=== PATIENT | female | born 1950 | race Caucasian/White ===

== ENCOUNTER 2018-03-14 05:30 | Inpatient (IN) | payer MEDICARE ==
[2018-03-08 15:49] LABS: BASOPHILS % (AUTO) 0.5 % (0-1); EOSINOPHILS # (AUTO) 0.2 X10'3 (0-0.9); EOSINOPHILS % (AUTO) 4.3 % (0-6); LYMPHOCYTES # (AUTO) 1.4 X10'3 (1.1-4.8); LYMPHOCYTES % (AUTO) 26.1 % (21-51); MEAN CORPUSCULAR HEMOGLOBIN 33.4 PG (27.0-31.0); MEAN CORPUSCULAR HGB CONC 34.7 % (33.0-36.5); MEAN CORPUSCULAR VOLUME 96.2 FL (78-98); MEAN PLATELET VOLUME 8.2 FL (7.4-10.4); MONOCYTES # (AUTO) 0.6 X10'3 (0-0.9); MONOCYTES % (AUTO) 10.6 % (2-12); NEUTROPHILS # (AUTO) 3.1 X10'3 (1.8-7.7); NEUTROPHILS % (AUTO) 58.5 % (42-75); PRE OP HEMATOCRIT 38.8 % (35.0-45.0); PRE OP HEMOGLOBIN 13.5 g/dL (12.0-16.0); PRE OP PLATELET COUNT 205 X10'3 (140-440); RED BLOOD COUNT 4.04 X10'6 (4.20-5.60); RED CELL DISTRIBUTION WIDTH 15.6 % (11.5-14.5)
[2018-03-08 15:51] LABS: PRE OP PROTIME 10.2 SECONDS (9.0-12.0)
[2018-03-08 15:56] LABS: ALBUMIN 3.1 G/DL (3.4-5.0); ALBUMIN/GLOBULIN RATIO 0.7 (1.1-1.5); ALKALINE PHOSPHATASE 73 IU/L (46-116); BLOOD UREA NITROGEN 25 MG/DL (7-18); CALCIUM 9.6 MG/DL (8.5-10.1); CHLORIDE 106 MMOL/L (99-107); CREATININE 1.25 MG/DL (0.40-0.90); PRE OP ANION GAP 5 (8-16); PRE OP AST 18 U/L (10-37); PRE OP BILIRUB, TOTAL 0.2 MG/DL (0.0-1.0); PRE OP GLUCOSE 93 MG/DL (70-104); PRE OP SODIUM 143 MMOL/L (135-145); TOTAL CARBON DIOXIDE 32.3 MMOL/L (24-32); TOTAL PROTEIN 7.4 G/DL (6.4-8.2); eGFR 43 ML/MIN
[2018-03-08 15:59] LABS: PRE OP ALT 4 U/L (30-65); PRE OP POTASSIUM 3.2 MMOL/L (3.4-5.1)
[~2018-03-14] VITALS: Ht 162.6 cm; Wt 67.1 kg
[2018-03-14] VITALS (17 sets, daily range): BP systolic 96–139; BP diastolic 55–69
[~2018-03-14 05:30] MED LIST: ALPR1TAB2 PO; AMLO5TAB PO; ATEN100T PO; CALC-1051 PO; CYAN-19 PO; Cefazolin 2GM/50ML dext iso,osmotic IVPB IV ONE; DOCUMENT DATE & TIME OF BETA-BLOCKER PO ONE; HYDR25TA4 PO; LANS15CA10 PO; MIRT45TA6 PO; clindamycin-Cleocin 900mg/D5W 50 ML IV ONE; famotidine 20mg tablet PO ONE; ringers solution, lacted 1,000 ML IV SCH
[2018-03-14] MEDS ORDERED: LIDOcaine 1% (10mg/ml) 2ml vial ONE (05:39)
[2018-03-14 06:36] LABS: ISTAT HGB 14.3 g/dl (12.0-16.0); ISTAT IONIZED CALCIUM 1.34 mmol/L (1.03-1.32); ISTAT K 3.8 mmol/L (3.5-5.1)
[2018-03-14] MEDS ORDERED: ceFAZolin 1000mg inj ONE (06:54)
[2018-03-14] MEDS ORDERED: tetracaine 1% (10mg/ml) pres. free inj. ONE (07:23)
[2018-03-14] MEDS ORDERED: morphine sulfate /PF 0.5 MG/ML 10mL ampul ONE (07:25)
[2018-03-14] MEDS ORDERED: fentaNYL/PF 50MCG/1 ML 2ML syringe ONE ×2 (07:25→08:23)
[2018-03-14] MEDS ORDERED: MIDAZolam 5mg/5ml vial ONE (07:25)
[2018-03-14] MEDS ORDERED: propofol inj 20 ML IV ONE (07:31)
[2018-03-14] MEDS ORDERED: LIDOcaine 1%/PF 5ML 10 MG/ML VIAL ONE (07:31)
[2018-03-14] MEDS ORDERED: sevoflurane 250ml liquid IH ONE (07:51)
[2018-03-14] MEDS ORDERED: TRANEXAMIC ACID 0 MG in NORMAL SALINE 100 ML-BEFORE SURGERY IV ONE (09:20)
[2018-03-14] MEDS ORDERED: ondansetron/PF 4mg/2ml inj ONE (09:46)
[2018-03-14] MEDS ORDERED: dexamethasone sod phosphate 4mg/ml inj. ONE (09:46)
[2018-03-14] MEDS ORDERED: diphenhydrAMINE 50 mg/ml inj ONE (09:46)
[2018-03-14] MEDS ORDERED: morphine 4 MG/ML inj SYRINge IV PRN ×2 (09:55)
[2018-03-14] MEDS ORDERED: meperidine/PF 25mg/ml syringe IV PRN ×3 (09:55)
[2018-03-14] MEDS ORDERED: proCHLORperazine 10 MG/2 ml inj IV PRN (09:55)
[2018-03-14] MEDS ORDERED: ondansetron/PF 4mg/2ml inj IV PRN ×3 (09:55→10:20)
[2018-03-14] MEDS ORDERED: diphenhydrAMINE 50 mg/ml inj IV PRN (09:55)
[2018-03-14] MEDS ORDERED: meperidine/PF 25mg/ml syringe ONE (09:55)
[2018-03-14] MEDS ORDERED: ringers solution, lacted 1,000 ML IV SCH (09:55)
[2018-03-14] MEDS ORDERED: naloxone 2mg/2ml inj 1.2 MG in normal saline 500ml IV soln 500 ML IV PRN (09:55)
[2018-03-14] MEDS ORDERED: acetaminophen 325mg tablet PO PRN (10:20)
[2018-03-14] MEDS ORDERED: diphenhydrAMINE 25mg capsule PO PRN ×2 (10:20)
[2018-03-14] MEDS ORDERED: magnesium hydroxide 30ml (MOM) UD suspension PO PRN (10:20)
[2018-03-14] MEDS ORDERED: bisacodyl 10mg suppository rectal RC PRN (10:20)
[2018-03-14] MEDS ORDERED: HYDROcodone/acetaminophen 10/325mg tab PO PRN ×2 (10:20)
[2018-03-14] MEDS: oxyCODONE/APAP 10/325mg tablet PO PRN (11:48)
[2018-03-14] MEDS: ALPRAZolam 0.5mg tablet PO PRN ×2 (15:10→21:00)
[2018-03-14] MEDS: clindamycin 600mg/D5W 50ml 50 ML IV SCH ×2 (15:16→20:58)
[2018-03-14] MEDS: potassium Cl 20mEq in NS 1,000 ML IV SCH (16:10)
[2018-03-14] MEDS: oxyCODONE/APAP 5-325mg tablet PO PRN ×2 (16:10→21:07)
[2018-03-14] MEDS: aspirin 81mg tab.chew PO SCH (20:59)
[2018-03-14] MEDS: sennosides 8.6mg tablet PO SCH (20:59)
[2018-03-14] MEDS: mirtazapine 15mg tablet PO SCH (21:00)
[2018-03-15] MEDS: oxyCODONE/APAP 5-325mg tablet PO PRN ×5 (01:13→21:03)
[2018-03-15] MEDS: potassium Cl 20mEq in NS 1,000 ML IV SCH (01:13)
[2018-03-15 06:02] LABS: BASOPHILS % (AUTO) 0 % (0-1); EOSINOPHILS % (AUTO) 0 % (0-6); HEMATOCRIT 33.6 % (35.0-45.0); HEMOGLOBIN 11.4 g/dl (12.0-16.0); LYMPHOCYTES # (AUTO) 0.9 X10'3 (1.1-4.8); MEAN CORPUSCULAR HEMOGLOBIN 32.8 PG (27.0-31.0); MEAN CORPUSCULAR VOLUME 96.3 FL (78-98); MEAN PLATELET VOLUME 8.2 FL (7.4-10.4); MONOCYTES # (AUTO) 0.8 X10'3 (0-0.9); NEUTROPHILS # (AUTO) 7.1 X10'3 (1.8-7.7); PLATELET COUNT 156 X10'3 (140-440); RED BLOOD COUNT 3.48 X10'6 (4.20-5.60); RED CELL DISTRIBUTION WIDTH 16.1 % (11.5-14.5); WHITE BLOOD COUNT 8.8 X10'3 (4.5-11.0)
[2018-03-15 06:11] LABS: ALANINE AMINOTRANSFERASE 20 U/L (12-78); ALBUMIN 2.4 G/DL (3.4-5.0); ALBUMIN/GLOBULIN RATIO 0.7 (1.1-1.5); ALKALINE PHOSPHATASE 57 IU/L (46-116); ANION GAP 7 (8-16); ASPARTATE AMINO TRANSFERASE 16 U/L (10-37); BILIRUBIN,TOTAL 0.3 MG/DL (0.1-1.0); BLOOD UREA NITROGEN 18 MG/DL (7-18); CALCIUM 7.9 MG/DL (8.5-10.1); CHLORIDE 108 MMOL/L (99-107); GLUCOSE 111 MG/DL (70-104); POTASSIUM 3.9 MMOL/L (3.5-5.1); SODIUM 142 MMOL/L (135-145); TOTAL CARBON DIOXIDE 27.3 MMOL/L (24-32); eGFR 45 ML/MIN
[2018-03-15 06:46] VITALS: BP 122/62
[2018-03-15] MEDS: pantoprazole 40mg Tablet.DR PO SCH (07:05)
[2018-03-15] MEDS: HYDROchlorothiazide 25mg tablet PO SCH (07:05)
[2018-03-15] MEDS: amLODIPine 5mg tablet PO SCH (07:12)
[2018-03-15] MEDS: aspirin 81mg tab.chew PO SCH ×2 (07:17→17:45)
[2018-03-15] MEDS: atenolol 50mg tablet PO SCH (07:18)
[2018-03-15] MEDS: ALPRAZolam 0.5mg tablet PO PRN ×3 (07:19→21:03)
[2018-03-15 07:30] VITALS: BP 111/75
[2018-03-15 10:00] VITALS: BP 108/54
[2018-03-15] MEDS ORDERED: Protein Shake (high protein) 240ml (8oz) cup PO SCH (12:30)
[2018-03-15 18:00] VITALS: BP 129/63
[2018-03-15] MEDS: sennosides 8.6mg tablet PO SCH (21:03)
[2018-03-15] MEDS: mirtazapine 15mg tablet PO SCH (21:03)
[2018-03-15 22:00] VITALS: BP 115/59
[2018-03-16] MEDS: oxyCODONE/APAP 10/325mg tablet PO PRN ×2 (02:18→06:20)
[2018-03-16 05:00] VITALS: BP 147/74
[2018-03-16 06:02] LABS: BASOPHILS % (AUTO) 0.3 % (0-1); EOSINOPHILS % (AUTO) 0.5 % (0-6); HEMATOCRIT 34.9 % (35.0-45.0); LYMPHOCYTES # (AUTO) 1.6 X10'3 (1.1-4.8); LYMPHOCYTES % (AUTO) 18.4 % (21-51); MEAN CORPUSCULAR HEMOGLOBIN 33.1 PG (27.0-31.0); MEAN CORPUSCULAR HGB CONC 34.4 % (33.0-36.5); MEAN CORPUSCULAR VOLUME 95.9 FL (78-98); MONOCYTES # (AUTO) 0.8 X10'3 (0-0.9); NEUTROPHILS % (AUTO) 70.8 % (42-75); PLATELET COUNT 160 X10'3 (140-440); RED BLOOD COUNT 3.64 X10'6 (4.20-5.60); RED CELL DISTRIBUTION WIDTH 16.2 % (11.5-14.5); WHITE BLOOD COUNT 8.5 X10'3 (4.5-11.0)
[2018-03-16 06:18] LABS: ALANINE AMINOTRANSFERASE 23 U/L (12-78); ALBUMIN 2.5 G/DL (3.4-5.0); ALBUMIN/GLOBULIN RATIO 0.6 (1.1-1.5); ALKALINE PHOSPHATASE 58 IU/L (46-116); ANION GAP 8 (8-16); ASPARTATE AMINO TRANSFERASE 24 U/L (10-37); BILIRUBIN,TOTAL 0.4 MG/DL (0.1-1.0); BLOOD UREA NITROGEN 14 MG/DL (7-18); BUN/CREATININE RATIO 12.2 (6.6-38.0); CALCIUM 8.7 MG/DL (8.5-10.1); CHLORIDE 105 MMOL/L (99-107); CREATININE 1.15 MG/DL (0.40-0.90); GLUCOSE 86 MG/DL (70-104); POTASSIUM 3.3 MMOL/L (3.5-5.1); SODIUM 141 MMOL/L (135-145); TOTAL CARBON DIOXIDE 28.1 MMOL/L (24-32); TOTAL PROTEIN 6.5 G/DL (6.4-8.2); eGFR 47 ML/MIN
[2018-03-16] MEDS ORDERED: potassium Cl 20 mEq SR tablet PO PRN (07:00)
[2018-03-16] MEDS ORDERED: potassium Cl 40MEQ/NS 500ml 500 ML IV PRN ×2 (07:00)
[2018-03-16] MEDS: pantoprazole 40mg Tablet.DR PO SCH (07:30)
[2018-03-16 08:00] VITALS: BP 97/66
[2018-03-16] MEDS: HYDROchlorothiazide 25mg tablet PO SCH (08:00)
[2018-03-16] MEDS: amLODIPine 5mg tablet PO SCH (08:00)
[2018-03-16] MEDS: atenolol 50mg tablet PO SCH (08:00)
[2018-03-16] MEDS: aspirin 81mg tab.chew PO SCH ×2 (08:02→17:38)
[2018-03-16] MEDS: potassium Cl 20 mEq SR tablet PO PRN ×3 (08:02→17:37)
[2018-03-16] MEDS: ALPRAZolam 0.5mg tablet PO PRN ×2 (08:03→15:30)
[2018-03-16 09:21] LABS: MAGNESIUM 1.2 MG/DL (1.5-2.4)
[2018-03-16 10:00] VITALS: BP 102/50
[2018-03-16] MEDS ORDERED: magnesium Cl slow-release 64mg tablet PO PRN (12:45)
[2018-03-16] MEDS: oxyCODONE/APAP 5-325mg tablet PO PRN ×2 (13:02→17:38)
== END 2018-03-16 17:30 | disposition home health service (06) | DRG 468 ==
LOC: PAS IN 05:30 → EDSTATUS 07:30 → ORTHO 4S 10:50
PROVIDERS: ADMIT Orthopaedic Surgery; ATTEND Orthopaedic Surgery
PROC: 0SUA09Z Supplement Right Hip Joint, Acetabular Surface with Liner, Open Approach (ICD-10-PCS; 2018-03-14)
PROC: 0SRR0JZ Replacement of Right Hip Joint, Femoral Surface with Synthetic Substitute, Open Approach (ICD-10-PCS; 2018-03-14)
PROC: 0SPR0JZ Removal of Synthetic Substitute from Right Hip Joint, Femoral Surface, Open Approach (ICD-10-PCS; 2018-03-14)
PROC: 0SP909Z Removal of Liner from Right Hip Joint, Open Approach (ICD-10-PCS; principal; 2018-03-14 07:51)
DX: T84.020A Dislocation of internal right hip prosthesis, initial encounter (principal); I10 Essential (primary) hypertension; Y79.2 Prosthetic and other implants, materials and accessory orthopedic devices associated with adverse incidents; F41.9 Anxiety disorder, unspecified; Z88.8 Allergy status to other drugs, medicaments and biological substances; Z79.899 Other long term (current) drug therapy; Z85.42 Personal history of malignant neoplasm of other parts of uterus; Y92.89 Other specified places as the place of occurrence of the external cause
CPT/HCPCS: 36415; 80047; 80053; 83735; 85025; 85610; 85730; 86885; 86900; 86901; 86920; 87070; 93005; 97110; 97116; 97162; 97530; A6449; A6455; A7000; C1758; C1776; J0690; J1100; J1200; J2001; J2175; J2250; J2274; J2405; J2704; J3010; J3490; J7030; J7120

== ENCOUNTER 2018-09-04 09:48 | Inpatient (IN) | payer MEDICARE ==
[~2018-09-04] VITALS: Ht 157.5 cm; Wt 65.4 kg
[2018-09-04] VITALS (18 sets, daily range): BP systolic 96–137; BP diastolic 44–76
[~2018-09-04 09:48] MED LIST changes: -CALC-1051 PO; -CYAN-19 PO; -Cefazolin 2GM/50ML dext iso,osmotic IVPB IV ONE; -DOCUMENT DATE & TIME OF BETA-BLOCKER PO ONE; -MIRT45TA6 PO; +MIRT45TA83 PO; -clindamycin-Cleocin 900mg/D5W 50 ML IV ONE; -famotidine 20mg tablet PO ONE; -ringers solution, lacted 1,000 ML IV SCH
[2018-09-04 10:12] LABS: BASOPHILS % (AUTO) 0.5 % (0-1); EOSINOPHILS # (AUTO) 0.2 X10'3 (0-0.9); EOSINOPHILS % (AUTO) 3.1 % (0-6); HEMATOCRIT 37.8 % (35.0-45.0); LYMPHOCYTES # (AUTO) 1.5 X10'3 (1.1-4.8); LYMPHOCYTES % (AUTO) 22.4 % (21-51); MEAN CORPUSCULAR HEMOGLOBIN 32.7 PG (27.0-31.0); MEAN CORPUSCULAR HGB CONC 34.4 % (33.0-36.5); MEAN CORPUSCULAR VOLUME 95.2 FL (78-98); MEAN PLATELET VOLUME 7.6 FL (7.4-10.4); MONOCYTES # (AUTO) 0.8 X10'3 (0-0.9); MONOCYTES % (AUTO) 11.9 % (2-12); NEUTROPHILS % (AUTO) 62.1 % (42-75); PLATELET COUNT 231 X10'3 (140-440); RED BLOOD COUNT 3.97 X10'6 (4.20-5.60); RED CELL DISTRIBUTION WIDTH 13.8 % (11.5-14.5); WHITE BLOOD COUNT 6.5 X10'3 (4.5-11.0)
[2018-09-04 10:30] LABS: ALANINE AMINOTRANSFERASE 21 U/L (12-78); ALBUMIN 3.4 G/DL (3.4-5.0); ALBUMIN/GLOBULIN RATIO 0.7 (1.1-1.5); ALKALINE PHOSPHATASE 69 IU/L (46-116); ANION GAP 11 (8-16); ASPARTATE AMINO TRANSFERASE 19 U/L (10-37); BILIRUBIN,TOTAL 0.4 MG/DL (0.1-1.0); BLOOD UREA NITROGEN 28 MG/DL (7-18); CALCIUM 9.6 MG/DL (8.5-10.1); CHLORIDE 105 MMOL/L (99-107); CREATININE 1.65 MG/DL (0.40-0.90); GLUCOSE 86 MG/DL (70-104); POTASSIUM 3.1 MMOL/L (3.5-5.1); SODIUM 142 MMOL/L (135-145); TOTAL CARBON DIOXIDE 26.4 MMOL/L (24-32); TOTAL PROTEIN 8.1 G/DL (6.4-8.2); eGFR 31 ML/MIN
--- NOTE | 2018-09-04 10:30 | NUR ---
VERBAL CONSENT RECEIVED FROM PATIENT FOR NEURO TELEMEDICINE EVALUATION.
[2018-09-04 10:32] LABS: PARTIAL THROMBOPLASTIN TIME 24 SECONDS (22-32); PROTHROMBIN TIME 10.3 SECONDS (9.0-12.0); TROPONIN I < 0.04 NG/ML (0.0-0.05)
--- NOTE | 2018-09-04 10:55 | NUR ---
tPA INTIATED AFTER LONG DICUSSION WITH NEULOGIST RISK VS BENEFITS PATIENT INIALLY DECLINED tPA BUT AFTER FURTHER DISCUSSION WITH HER SIGNIFICANT OTHER DECIDED TO PROCEED.
[2018-09-04] MEDS ORDERED: normal saline 1000ML IV soln IVB ONE ×2 (11:05→11:25)
[2018-09-04] MEDS ORDERED: OMEP20TA23 PO (11:34)
[2018-09-04] MEDS ORDERED: CALC-1197 PO (11:34)
[2018-09-04] MEDS ORDERED: MEGE40TA27 PO (11:34)
[2018-09-04] MEDS ORDERED: CYAN100087 PO (11:34)
[2018-09-04] MEDS ORDERED: TRIA1CAP6 PO (11:36)
[2018-09-04] MEDS ORDERED: magnesium hydroxide 30ml (MOM) UD suspension PO PRN (11:45)
[2018-09-04] MEDS ORDERED: ondansetron/PF 4mg/2ml inj IV PRN (11:45)
[2018-09-04] MEDS ORDERED: potassium Cl 20 mEq SR tablet PO PRN ×2 (11:45)
[2018-09-04] MEDS ORDERED: morphine 4 MG/ML inj SYRINge IV PRN ×2 (11:45)
[2018-09-04] MEDS ORDERED: potassium Cl 40MEQ/NS 500ml 500 ML IV PRN ×2 (11:45)
[2018-09-04] MEDS ORDERED: acetaminophen 325mg tablet PO PRN ×2 (11:45)
[2018-09-04] MEDS ORDERED: ALPR1TAB2 PO (15:54)
--- NOTE | 2018-09-04 16:42 | NUR ---
Patient rec from ER via [facility] at 1620, awake and alert. Oriented x4. Report rec from Ladarius Vinson RN. VSS, BP lower 101/59. Still with right hand (thumb and first 2 fingers) still with some weakness but per RN and patient report has had significant improvement. Able to yard worker now and move her fingers independently. Oriented to room and call potter, fall, and bleeding precautions after tpa infusion. No bruising or bleeding noted but had some red in urine in the ED. Pt given her stroke packet. SCD's placed.
[2018-09-04] MEDS ORDERED: ALPRAZolam 0.25mg tablet PO ONE (17:35)
--- NOTE | 2018-09-04 18:30 | NUR ---
Patient in room CICU 2011. I have received report from ERIC Cat and had the opportunity to ask questions and assume patient care.
[2018-09-04 18:50] LABS: CLARITY,URINE CLEAR (Clear); COLOR,URINE YELLOW (Yellow); GLUCOSE, URINE NEGATIVE (Neg); KETONES,URINE NEGATIVE (Neg); LEUKOCYTE ESTERASE ,URINE TRACE (Neg); NITRITES, URINE NEGATIVE (Neg); OCCULT BLOOD,URINE MODERATE (Neg); PROTEIN,URINE TRACE mg/dl (Neg); UROBILINOGEN,URINE 0.2 E.U/dL (0.2-1.0)
[2018-09-04 18:57] LABS: UA COLLECTION TYPE CLN CATCH MIDSTREAM
[2018-09-04 18:58] LABS: BACTERIA,URINE FEW /HPF (Neg); RBC,URINE 0-2 /HPF (0-2); SQUAMOUS EPITHELIAL CELL,UR FEW /LPF (FEW); WBC,URINE 0-4 /HPF (0-4)
--- NOTE | 2018-09-04 19:00 | NUR ---
Pt temp 36.7
[2018-09-04 19:32] LABS: UA EOSINOPHILS NO EOS /HPF
[2018-09-04] MEDS ORDERED: ALPRAZolam 0.5mg tablet PO PRN (19:35)
[2018-09-04] MEDS ORDERED: heparin, porcine 5000 units/ml vial SQ SCH (20:00)
[2018-09-04] MEDS: famotidine 20mg tablet PO SCH (20:51)
[2018-09-04] MEDS ORDERED: mirtazapine 15mg tablet PO SCH (21:00)
--- NOTE | 2018-09-04 23:00 | NUR ---
PT temp 37.2
[2018-09-05] VITALS (12 sets, daily range): BP systolic 110–143; BP diastolic 45–88
--- NOTE | 2018-09-05 03:00 | NUR ---
Pt temp 37.1
[2018-09-05 06:02] LABS: BASOPHILS % (AUTO) 0.5 % (0-1); EOSINOPHILS # (AUTO) 0.2 X10'3 (0-0.9); EOSINOPHILS % (AUTO) 4.5 % (0-6); HEMATOCRIT 33.3 % (35.0-45.0); HEMOGLOBIN 11.5 g/dl (12.0-16.0); LYMPHOCYTES # (AUTO) 1.6 X10'3 (1.1-4.8); LYMPHOCYTES % (AUTO) 37.9 % (21-51); MEAN CORPUSCULAR HEMOGLOBIN 32.7 PG (27.0-31.0); MEAN CORPUSCULAR HGB CONC 34.5 % (33.0-36.5); MEAN CORPUSCULAR VOLUME 94.7 FL (78-98); MEAN PLATELET VOLUME 7.9 FL (7.4-10.4); MONOCYTES # (AUTO) 0.6 X10'3 (0-0.9); MONOCYTES % (AUTO) 13.3 % (2-12); NEUTROPHILS # (AUTO) 1.8 X10'3 (1.8-7.7); NEUTROPHILS % (AUTO) 43.8 % (42-75); PLATELET COUNT 180 X10'3 (140-440); RED BLOOD COUNT 3.51 X10'6 (4.20-5.60); RED CELL DISTRIBUTION WIDTH 13.6 % (11.5-14.5); WHITE BLOOD COUNT 4.2 X10'3 (4.5-11.0)
[2018-09-05 06:26] LABS: ALANINE AMINOTRANSFERASE 18 U/L (12-78); ALBUMIN 2.8 G/DL (3.4-5.0); ALBUMIN/GLOBULIN RATIO 0.7 (1.1-1.5); ALKALINE PHOSPHATASE 57 IU/L (46-116); ANION GAP 11 (8-16); ASPARTATE AMINO TRANSFERASE 16 U/L (10-37); BILIRUBIN,TOTAL 0.4 MG/DL (0.1-1.0); BLOOD UREA NITROGEN 23 MG/DL (7-18); BUN/CREATININE RATIO 16.9 (6.6-38.0); CALCIUM 8.8 MG/DL (8.5-10.1); CHLORIDE 108 MMOL/L (99-107); CHOL/HDL RATIO 4.5 (0.00-4.99); CHOLESTEROL 170 MG/DL (0-200); CREATININE 1.36 MG/DL (0.40-0.90); GLUCOSE 86 MG/DL (70-104); HDL CHOLESTEROL 38 MG/DL (35-60); LDL CHOLESTEROL 113 MG/DL (50-100); MAGNESIUM 1.4 MG/DL (1.5-2.4); PHOSPHORUS 3.5 MG/DL (2.3-4.5); SODIUM 144 MMOL/L (135-145); TOTAL CARBON DIOXIDE 24.7 MMOL/L (24-32); TOTAL PROTEIN 6.7 G/DL (6.4-8.2); TRIGLYCERIDES 124 MG/DL (20-135); eGFR 39 ML/MIN
--- NOTE | 2018-09-05 06:30 | NUR ---
Problems reprioritized. Patient report given, questions answered & plan of care reviewed with ERIC Raygoza.
[2018-09-05 06:43] LABS: POTASSIUM 2.7 MMOL/L (3.5-5.1)
[2018-09-05] MEDS: famotidine 20mg tablet PO SCH (07:06)
[2018-09-05] MEDS ORDERED: pantoprazole 40mg Tablet.DR PO SCH (07:30)
[2018-09-05] MEDS ORDERED: megestrol acetate 20mg tablet PO SCH (08:00)
--- NOTE | 2018-09-05 11:30 | NUR ---
Patient in room ORTHO 4015. I have received report from Idalmis REYES and had the opportunity to ask questions and assume patient care.
[2018-09-05] MEDS ORDERED: magnesium Cl slow-release 64mg tablet PO PRN (12:55)
--- NOTE | 2018-09-05 13:30 | NUR ---
Problems reprioritized. Patient report given, questions answered & plan of care reviewed with Kentrell REYES.
[2018-09-05] MEDS ORDERED: ASPI-1265 PO (16:53)
== END 2018-09-05 17:45 | disposition home health service (06) | DRG 62 ==
LOC: ER 09:49 → ED HOLD 11:44 → CICU 2S 16:20 → ORTHO 4S 09-05 10:45
PROVIDERS: ADMIT Internal Medicine Critical Care Medicine; ATTEND Internal Medicine Critical Care Medicine
DX: I63.9 Cerebral infarction, unspecified (principal); N17.9 Acute kidney failure, unspecified; I12.9 Hypertensive chronic kidney disease with stage 1 through stage 4 chronic kidney disease, or unspecified chronic kidney disease; Z85.42 Personal history of malignant neoplasm of other parts of uterus; Z85.44 Personal history of malignant neoplasm of other female genital organs; Z90.710 Acquired absence of both cervix and uterus; E87.6 Hypokalemia; N18.3 Chronic kidney disease, stage 3 (moderate); Z88.8 Allergy status to other drugs, medicaments and biological substances
CPT/HCPCS: 36415; 70450; 70544; 70551; 71045; 76775; 80053; 80061; 81001; 82570; 82948; 83036; 83735; 84100; 84156; 84300; 84484; 85025; 85610; 85730; 87070; 87207; 92616; 93005; 93306; 93880; 97110; 97116; 97161; 97530; 99291; G0378; J2997

== ENCOUNTER 2019-01-09 09:41 | Day surgery (SDC) | payer MEDICARE ==
[~2019-01-09] VITALS: Ht 158.8 cm; Wt 64.7 kg
[2019-01-09 09:35] VITALS: BP 135/104
[~2019-01-09 09:41] MED LIST changes: +CALC-1197 PO; +CYAN100087 PO; -HYDR25TA4 PO; -LANS15CA10 PO; +MEGE40TA27 PO; +OMEP20TA23 PO; +TRIA1CAP6 PO
[2019-01-09] MEDS ORDERED: ASPI-611 PO (10:04)
[2019-01-09] MEDS ORDERED: MIDAZolam 5mg/5ml vial ONE ×2 (10:41→10:44)
[2019-01-09] MEDS ORDERED: fentaNYL/PF 50MCG/1 ML 2ML syringe ONE ×2 (10:41→10:43)
[2019-01-09 11:09] VITALS: BP 134/77
[2019-01-09 11:19] VITALS: BP 122/72
[2019-01-09 11:29] VITALS: BP 121/71
[2019-01-09 11:39] VITALS: BP 117/62
== END 2019-01-09 12:00 | disposition home or self-care (01) ==
LOC: GI LAB 09:41
PROVIDERS: ATTEND Internal Medicine Gastroenterology
DX: K62.7 Radiation proctitis (principal); K57.30 Diverticulosis of large intestine without perforation or abscess without bleeding; K64.8 Other hemorrhoids
CPT/HCPCS: 45334; J2250; J3010; J7030; 99152; A4620

== ENCOUNTER 2019-03-13 08:38 | Day surgery (SDC) | payer MEDICARE ==
[~2019-03-13] VITALS: Ht 158.8 cm; Wt 64.5 kg
[~2019-03-13 08:38] MED LIST changes: +ASPI-611 PO; -MEGE40TA27 PO
[2019-03-13 08:45] VITALS: BP 144/75
[2019-03-13] MEDS ORDERED: fentaNYL/PF 50MCG/1 ML 2ML syringe ONE (09:23)
[2019-03-13] MEDS ORDERED: MIDAZolam 5mg/5ml vial ONE (09:24)
[2019-03-13] MEDS ORDERED: ALPR-324 PO (09:26)
[2019-03-13 10:42] VITALS: BP 130/72
[2019-03-13 10:52] VITALS: BP 148/68
[2019-03-13 11:02] VITALS: BP 132/63
[2019-03-13 11:12] VITALS: BP 123/73
== END 2019-03-13 11:40 | disposition home or self-care (01) ==
LOC: GI LAB 08:38
PROVIDERS: ATTEND Internal Medicine Gastroenterology
DX: K62.89 Other specified diseases of anus and rectum (principal); K62.7 Radiation proctitis; K57.30 Diverticulosis of large intestine without perforation or abscess without bleeding; K63.3 Ulcer of intestine; K21.9 Gastro-esophageal reflux disease without esophagitis; M19.90 Unspecified osteoarthritis, unspecified site; F41.9 Anxiety disorder, unspecified; F32.9 Major depressive disorder, single episode, unspecified; G47.00 Insomnia, unspecified; Z72.89 Other problems related to lifestyle; Z96.641 Presence of right artificial hip joint; Z85.42 Personal history of malignant neoplasm of other parts of uterus
CPT/HCPCS: 45331; 45346; G0500; J2250; J3010; J7040; 45334; 88305; 99152; 99153; A4620

== ENCOUNTER 2019-04-24 11:12 | Day surgery (SDC) | payer MEDICARE ==
[~2019-04-24] VITALS: Ht 158.8 cm; Wt 64.5 kg
[2019-04-24 11:24] VITALS: BP 139/66
[2019-04-24] MEDS ORDERED: fentaNYL/PF 50MCG/1 ML 2ML syringe ONE (11:57)
[2019-04-24] MEDS ORDERED: MIDAZolam 5mg/5ml vial ONE (11:58)
[2019-04-24 13:00] VITALS: BP 137/77
[2019-04-24 13:10] VITALS: BP 116/75
[2019-04-24 13:20] VITALS: BP 112/69
[2019-04-24 13:30] VITALS: BP 136/80
== END 2019-04-24 13:55 | disposition home or self-care (01) ==
LOC: GI LAB 11:12
PROVIDERS: ATTEND Internal Medicine Gastroenterology
DX: K62.5 Hemorrhage of anus and rectum (principal); K62.6 Ulcer of anus and rectum; K62.89 Other specified diseases of anus and rectum; K62.7 Radiation proctitis
CPT/HCPCS: 45331; 45346; 99153; G0500; J2250; J3010; J7040; 88305; 99152; A4620; C1773

== ENCOUNTER 2019-06-30 04:50 | Outpatient (CLI) | payer MEDICARE | END 2019-06-30 23:59 | disposition home or self-care (01) | LOC: DIABETIC 04:50 | PROVIDERS: ATTEND Family Medicine | DX: I12.9 Hypertensive chronic kidney disease with stage 1 through stage 4 chronic kidney disease, or unspecified chronic kidney disease (principal); N18.9 Chronic kidney disease, unspecified; E78.00 Pure hypercholesterolemia, unspecified | CPT/HCPCS: 97802 ==

== ENCOUNTER 2025-01-03 09:16 | Emergency (ER) | payer MEDICARE ==
[~2025-01-03] VITALS: Ht 154.9 cm; Wt 62.9 kg
[~2025-01-03 09:16] MED LIST changes: -CALC-1197 PO; +CALC-1215 PO; -TRIA1CAP6 PO; +TRIA1CAP88 PO
[2025-01-03 09:25] VITALS: TEMP 98.4
[2025-01-03 09:40] LABS: BILIRUBIN,URINE NEGATIVE (Neg); CLARITY,URINE CLEAR (Clear); COLOR,URINE STRAW (Yellow); GLUCOSE, URINE NEGATIVE (Neg); KETONES,URINE NEGATIVE (Neg); LEUKOCYTE ESTERASE ,URINE NEGATIVE (Neg); OCCULT BLOOD,URINE NEGATIVE (Neg); PROTEIN,URINE NEGATIVE (Neg); UROBILINOGEN,URINE 0.2 E.U/dL (0.2-1.0)
[2025-01-03 09:46] LABS: NITRITES, URINE NEGATIVE (Neg); UA COLLECTION TYPE CLN CATCH MIDSTREAM
[2025-01-03 09:59] LABS: BASOPHILS % (AUTO) 0.5 % (0-1); EOSINOPHILS # (AUTO) 0.1 X10'3 (0-0.9); EOSINOPHILS % (AUTO) 1.3 % (0-6); HEMATOCRIT 37.2 % (35.0-45.0); HEMOGLOBIN 12.3 g/dl (12.0-16.0); LYMPHOCYTES # (AUTO) 1.1 X10'3 (1.1-4.8); MEAN CORPUSCULAR HEMOGLOBIN 33.2 PG (27.0-31.0); MEAN CORPUSCULAR VOLUME 100.6 FL (78-98); MEAN PLATELET VOLUME 7.4 FL (7.4-10.4); MONOCYTES # (AUTO) 0.4 X10'3 (0-0.9); MONOCYTES % (AUTO) 5.4 % (2-12); NEUTROPHILS # (AUTO) 5.7 X10'3 (1.8-7.7); NEUTROPHILS % (AUTO) 77.8 % (42-75); PLATELET COUNT 218 X10'3 (140-440); RED BLOOD COUNT 3.69 X10'6 (4.20-5.60); RED CELL DISTRIBUTION WIDTH 14.8 % (11.5-14.5); WHITE BLOOD COUNT 7.3 X10'3 (4.5-11.0)
[2025-01-03 10:18] LABS: ALANINE AMINOTRANSFERASE 17 U/L (12-78); ALBUMIN 3.3 G/DL (3.4-5.0); ALBUMIN/GLOBULIN RATIO 0.9 (1.1-1.5); ALKALINE PHOSPHATASE 76 IU/L (46-116); ANION GAP 6 (8-16); ASPARTATE AMINO TRANSFERASE 15 U/L (10-37); BILIRUBIN,TOTAL 0.5 MG/DL (0.1-1.0); BLOOD UREA NITROGEN 18 MG/DL (7-18); BUN/CREATININE RATIO 10.9 (10.0-20.0); CALCIUM 9.3 MG/DL (8.5-10.1); CHLORIDE 100 MMOL/L (99-107); CREATININE 1.65 MG/DL (0.40-0.90); GLUCOSE 125 MG/DL (70-104); LIPASE 49 U/L (16-77); POTASSIUM 3.2 MMOL/L (3.5-5.1); SODIUM 136 MMOL/L (135-145); TOTAL CARBON DIOXIDE 29.8 MMOL/L (24-32); TOTAL PROTEIN 7.1 G/DL (6.4-8.2); eCRCL 22 ML/MIN; eGFR 30 ML/MIN
[2025-01-03] MEDS: proCHLORperazine 10 MG/2 ml inj IV STA (11:55)
[2025-01-03] MEDS: morphine 4 MG/ML inj SYRINge IV STA (11:56)
[2025-01-03] MEDS: acetaminophen 1,000mg/100ml IV 100 ML IV SCH (12:09)
--- NOTE | 2025-01-03 12:15 | RADIOLOGY REPORT ---
Exam: CT CT ABDOMEN PELVIS History: LLQ abd pain Comparison Study: None Technique: Multidetector spiral CT of the abdomen was performed from lung bases to pubic symphysis. I maging was performed without IV contrast. Axial, coronal and sagittal multiplanar reformats were obta ined from the axial data set by the technologist. Radiation Dose : 1. Abdomen/Pelvis: CTDIvol 15.4 mGy, DLP 724.8 mGy*cm. Findings: Evaluation of solid organs is limited due to lack of intravenous contrast use. Lung Bases: Cardiomegaly. Liver: The liver is normal in size. No focal lesions. Gallbladder and Biliary Tree: Gallbladder is surgically absent. Spleen: Unremarkable Pancreas: The pancreas is grossly normal in appearance. Adrenal Glands: Unremarkable Kidneys: Kidneys are grossly normal without calculi or hydronephrosis. Right renal cyst measures 7.0 cm. Bladder: Grossly unremarkable for degree of distention. Bowel: The stomach is grossly normal in appearance. Diverticulosis. Inflammatory changes associated w ith the sigmoid colon. The appendix is not visualized; however, no secondary findings of acute append icitis identified. Ascites: Absent Lymphadenopathy: No mesenteric, retroperitoneal or periportal lymphadenopathy. Abdominal Wall and Mesentery: Unremarkable. Vasculature: The visualized abdominal aorta is normal in size and caliber. Evaluation of abdominal a nd pelvic vessels is limited due to lack of intravenous contrast. Pelvic Organs: The uterus is surgically absent. Musculoskeletal: No aggressive focal bony lesions, acute fractures or dislocation. Right hip arthropl asty. Scoliosis. Degenerative changes of the spine. Severe degenerative changes of the left hip. IMPRESSION: Findings are suspicious for acute sigmoid diverticulitis. No abscess or perforation at this time.
--- NOTE | 2025-01-03 12:54 | Physician Documentation ---
History of Present Illness Chief Complaint: Abdominal Pain Stated Complaint: LOWER L SIDED ABD PAIN Time Seen by MD: 09:29 Primary Medical Doctor: Filiberto Carney Mode of Arrival: POV HPI The patient is Seen today with left lower quadrant abdominal pain that started just a couple of days ago. Patient does admit to history of diverticula in her colon but denies any previous history of diverticulitis. Patient denies any fevers or chills and states she does have constipation off and on and does take Colace regularly. The patient denies any chest pain or shortness of breath or nausea, vomiting, diarrhea. Patient has no other concern or complaint at this time. Medication Reconciliation Allergies: Coded Allergies: monosodium glutamate (Verified Allergy, Severe, BREATHING DIFFICULTY, 06/04/16) Vqcwuim-LKB-YnF Reductase Inhibitor (Verified Allergy, Intermediate, 09/06/18) vancomycin (Verified Allergy, Unknown, itching, 12/18/13) famotidine (Unverified Adverse Reaction, Mild, DIARRHEA, 01/09/19) hydrocodone (Verified Adverse Reaction, Mild, INSOMNIA + ITCHING, 05/19/16) hydromorphone (Verified Adverse Reaction, Mild, INSOMNIA + ITCHING, 05/19/16) pantoprazole (Unverified Adverse Reaction, Mild, DIARRHEA, 01/09/19) Uncoded Allergies: MEGES (Allergy, Intermediate, CAUSED STROKE, 01/09/19) Scheduled Alprazolam (Xanax), 1 TAB PO TID PRN, (Reported) Amlodipine Besylate (Amlodipine Besylate), 1 TABLET PO DAILY, (Reported) Aspirin (Aspir 81), 1 TAB PO DAILY, (Reported) Atenolol (Atenolol), 1 TAB PO DAILY, (Reported) Mirtazapine (Remeron), 0.5 TAB PO HS, (Reported) Omeprazole Magnesium (Prilosec Otc), 1 TAB PO DAILY, (Reported) Triamterene/Hydrochlorothiazid (Triamterene-Hctz 37.5-25 Mg Cp), 1 CAP PO DAILY, (Reported) Miscellaneous Medications Calcium Carbonate/Vitamin D3 (Calcium + D 600 Mg Tablet), 1 EACH PO, (Reported) Cyanocobalamin (Vitamin B-12) (Vitamin B-12), 1,000 MCG PO, (Reported) Past Medical History Past Medical History: Hypertension, Arthritis, *CANCER*, Anxiety Past Surgical History: cholecystectomy, hysterectomy, orthopedic surgeries, tonsillectomy Alcohol Use: Occasionally Lives with: Spouse Lives In: Home Occupation: employed Review of Systems Constitutional: Denies: chills, fever, weakness Eyes: Denies: pain, blurred vision ENT: Denies: ear pain, nose pain, throat pain, mouth pain Respiratory: Denies: cough, shortness of breath Cardiovascular: Denies: chest pain, palpitations Gastrointestinal: Denies: abdominal pain, nausea, vomiting Genitourinary: Denies: burning, dysuria Female Genitalia: Denies: vaginal discharge, pelvic pain Neurological: Denies: headache, dizziness Musculoskeletal: Denies: pain, swelling Integumentary: Denies: rash, lesions Allergic/Immunologic: Denies: hives, itching Hematologic/Lymphatic: Denies: no symptoms reported Psychiatric: Denies: depression, anxiety Physical Exam Vital Signs: Temperature: 98.4, Source: Temporal, Heart Rate: 75, Respiratory Rate: 18, BP: 100/61, Pulse Oximetry: 97, Weight: 62.900 Oxygen Flow Rate: 0 Physical Exam General: Awake and Alert, no acute distress. HEENT: Conjunctiva pink, Sclera clear, Mucus Membranes moist. Neck: Supple without masses and tenderness. Resp: Unlabored. Lungs clear to auscultation bilaterally. Heart: Regular Rate and rhythm, normal S1 and S2 without murmur, rub or gallop. Abdomen: Patient on exam has abdomen that is nondistended, soft, tender to palpation in the left lower quadrant with rebound tenderness without any guarding. Normoactive bowel sounds. No masses. Extremities: No cyanosis,clubbing or edema. Skin: Warm and Dry. Progress Results/Orders Results/Orders Orders - MARKELL PAULSON PAC Ct Abdomen Pelvis (01/03/25 11:10) Saline Lock (01/03/25 ) Morphine 4mg/Ml Inj. (Morphine Inj.) (01/03/25 11:10) Acetaminophen 1,000mg/100ml Iv (Ofirmev (01/03/25 11:50) Completed Orders - MARKELL PAULSON PAC Ct Abdomen Pelvis (01/03/25 11:10) Prochlorperazine Inj (Compazine Inj) (01/03/25 11:10) Acetaminophen 1,000mg/100ml Iv (Ofirmev (01/03/25 14:00) Medications Received in ER Medications (Trade) Dose Ordered Sig/Veronica Route PRN Reason Start Time Stop Time Status Last Admin Dose Admin (Compazine inj) 10 mg ONCE STAT IV 01/03/25 11:10 01/03/25 11:21 DC 01/03/25 11:55 10 MG (morphine inj.) 4 mg ONCE STAT IV 01/03/25 11:10 01/03/25 11:21 DC 01/03/25 11:56 4 MG Acetaminophen 100 ml @ 400 mls/hr ONCE IV 01/03/25 11:50 01/04/25 13:00 01/03/25 12:09 400 MLS/HR Vital Signs 01/03/25 01/03/25 01/03/25 09:25 10:00 11:56 Temp 98.4 Pulse 75 Resp 18 18 B/P (MAP) 100/61 Pulse Ox 97 O2 Flow Rate 0 Laboratory Tests Test 01/03/25 09:30 01/03/25 09:40 Urine Specimen Description Cln catch midstream Urine Color Straw Urine Clarity Clear Urine pH 7.0 Urine Specific [place] 1.010 Urine Protein Negative Urine Glucose (UA) Negative Urine Ketones Negative Urine Occult Blood Negative Urine Nitrite Negative Urine Bilirubin Negative Urine Urobilinogen 0.2 Urine Leukocyte Esterase Negative Urine Culture Indicated Not ind Volume Urine Centrifuged 10 ml Urine Comment White Blood Count 7.3 Red Blood Count 3.69 L Hemoglobin 12.3 Hematocrit 37.2 Mean Corpuscular Volume 100.6 H Mean Corpuscular Hemoglobin 33.2 H Mean Corpuscular Hemoglobin Concent 33.0 Red Cell Distribution Width 14.8 H Platelet Count 218 Mean Platelet Volume 7.4 Neutrophils (%) (Auto) 77.8 H Lymphocytes (%) (Auto) 15.0 L Monocytes (%) (Auto) 5.4 Eosinophils (%) (Auto) 1.3 Basophils (%) (Auto) 0.5 Neutrophils # (Auto) 5.7 Lymphocytes # (Auto) 1.1 Monocytes # (Auto) 0.4 Eosinophils # (Auto) 0.1 Basophils # (Auto) 0.0 CBC Comment Sodium Level 136 Potassium Level 3.2 L Chloride Level 100 Carbon Dioxide Level 29.8 Anion Gap 6 L Blood Urea Nitrogen 18 Creatinine 1.65 H Estimated GFR/1.73 m2 30 BUN/Creatinine Ratio 10.9 Glucose Level 125 H Calcium Level 9.3 Total Bilirubin 0.5 Aspartate Amino Transf (AST/SGOT) 15 Alanine Aminotransferase (ALT/SGPT) 17 Alkaline Phosphatase 76 Total Protein 7.1 Albumin 3.3 L Globulin 3.8 Albumin/Globulin Ratio 0.9 L Lipase 49 Chemistry Comments EKG/XRAY/CT/US/VASC/MRI CT : Impression CAT SCAN Patient: KILO CAREY Medical Record: [id number] [facility] : 1950, Age: 74 Sex: Female Location: ER Patient Status: [facility] ER Service Date/Time: 01/03/251109 Ordering Physician: MARKELL PAULSON PAC Exam: CT ABDOMEN PELVIS Exam: CT CT ABDOMEN PELVIS History: LLQ abd pain Comparison Study: None Technique: Multidetector spiral CT of the abdomen was performed from lung bases to pubic symphysis. Imaging was performed without IV contrast. Axial, coronal and sagittal multiplanar reformats were obtained from the axial data set by the technologist. Radiation Dose : 1. Abdomen/Pelvis: CTDIvol 15.4 mGy, DLP 724.8 mGy*cm. Findings: Evaluation of solid organs is limited due to lack of intravenous contrast use. Lung Bases: Cardiomegaly. Liver: The liver is normal in size. No focal lesions. Gallbladder and Biliary Tree: Gallbladder is surgically absent. Spleen: Unremarkable Pancreas: The pancreas is grossly normal in appearance. Adrenal Glands: Unremarkable Kidneys: Kidneys are grossly normal without calculi or hydronephrosis. Right renal cyst measures 7.0 cm. Bladder: Grossly unremarkable for degree of distention. Bowel: The stomach is grossly normal in appearance. Diverticulosis. Inflammatory changes associated with the sigmoid colon. The appendix is not visualized; h owever, no secondary findings of acute appendicitis identified. Ascites: Absent Lymphadenopathy: No mesenteric, retroperitoneal or periportal lymphadenopathy. Abdominal Wall and Mesentery: Unremarkable. Vasculature: The visualized abdominal aorta is normal in size and caliber. Evaluation of abdominal and pelvic vessels is limited due to lack of intravenous contrast. Pelvic Organs: The uterus is surgically absent. Musculoskeletal: No aggressive focal bony lesions, acute fractures or dislocation. Right hip arthroplasty. Scoliosis. Degenerative changes of the spine. Severe degenerative changes of the left hip. IMPRESSION: Findings are suspicious for acute sigmoid diverticulitis. No abscess or perforation at this time. Electronically Signed by:RONN GARNICA MD Date & Time: 01/03/251212 Dictated by: RONN GARNICA MD Dictation date and time: 01/03/251212 Primary Care Provider: NO PRIMARY CARE PROVIDER cc: MARKELL PAULSON PAC ~ Medical Decision Making Findings The patient is Seen today with left lower quadrant abdominal pain that started just a couple of days ago. Patient does admit to history of diverticula in her colon but denies any previous history of diverticulitis. Patient denies any fevers or chills and states she does have constipation off and on and does take Colace regularly. The patient denies any chest pain or shortness of breath or nausea, vomiting, diarrhea. Patient has no other concern or complaint at this time. Patient did have CT scan of the abdomen and pelvis without contrast did show diverticulitis findings consistent with diverticulitis in the sigmoid colon without abscess and without rupture. Patient's blood work showed no sign of leukocytosis, labs relatively unremarkable with sign of chronic kidney disease which is patient is usual and baseline. Urinalysis showed no sign of urinary tract infection. Patient declined prescription for narcotic pain meds. Patient will be given prescription for metronidazole 500 mg one tab twice a day for seven days sent to patient pharmacy. Patient will follow up with primary care in 2-5 days if no better as needed sooner. Return to ED with any worsening, concerning or changing symptoms. Departure Disposition: HOME / SELF CARE / HOMELESS Impression: Primary Impression: Abdominal pain Qualified Codes: R10.32 - Left lower quadrant pain Additional Impression: Diverticulitis of sigmoid colon Condition: Stable Discharge Instructions: Diverticulitis, [id number] Additional Instructions: Patient did have CT scan of the abdomen and pelvis without contrast did show diverticulitis findings consistent with diverticulitis in the sigmoid colon without abscess and without rupture. Patient's blood work showed no sign of leukocytosis, labs relatively unremarkable with sign of chronic kidney disease which is patient is usual and baseline. Urinalysis showed no sign of urinary tract infection. Patient declined prescription for narcotic pain meds. Patient will be given prescription for metronidazole 500 mg one tab twice a day for seven days sent to patient pharmacy. Patient will follow up with primary care in 2-5 days if no better as needed sooner. Return to ED with any worsening, concerning or changing symptoms. Referrals: NO PRIMARY CARE PROVIDER (PCP) Prescriptions Metronidazole* (Flagyl*) 500 Mg Tablet 1 TAB PO Q8H for 10 Days, #30 TAB Prov: MARKELL PAULSON 01/03/25 Signature Scribe Signature: No scribe Attestation: No scribe MARKELL PAULSON January 03, 2025 12:54
[2025-01-03] MEDS ORDERED: METR-159 PO (12:55)
[2025-01-03 13:18] VITALS: BP 102/52; PULSE 50; RESP 16; O2SAT 98
[2025-01-03] MEDS ORDERED: acetaminophen 1,000mg/100ml IV 100 ML IV SCH (14:00)
== END 2025-01-03 13:20 | disposition home or self-care (01) ==
LOC: ER 09:16
DX: K57.32 Diverticulitis of large intestine without perforation or abscess without bleeding (principal); I10 Essential (primary) hypertension; M19.90 Unspecified osteoarthritis, unspecified site; F41.9 Anxiety disorder, unspecified; Z88.1 Allergy status to other antibiotic agents; Z88.5 Allergy status to narcotic agent; Z88.8 Allergy status to other drugs, medicaments and biological substances; Z90.49 Acquired absence of other specified parts of digestive tract; Z90.710 Acquired absence of both cervix and uterus
CPT/HCPCS: 36415; 74176; 80053; 81003; 83690; 85025; 96374; 96375; 99285; J0131; J0780; J2270

== ENCOUNTER 2025-04-18 06:59 | Emergency (ER) | payer MEDICARE ==
[~2025-04-18] VITALS: Ht 154.9 cm; Wt 62.1 kg
[2025-04-18 07:48] LABS: MEAN PLATELET VOLUME 7.5 FL (7.4-10.4); RED CELL DISTRIBUTION WIDTH 15.1 % (11.5-14.5)
[2025-04-18 07:59] LABS: CREATININE 1.41 MG/DL (0.40-0.90); TOTAL CARBON DIOXIDE 29.9 MMOL/L (24-32); eCRCL 26 ML/MIN; eGFR 36 ML/MIN
[2025-04-18 08:04] LABS: LEUKOCYTE ESTERASE ,URINE NEGATIVE (Neg); NITRITES, URINE NEGATIVE (Neg); OCCULT BLOOD,URINE TRACE-INTACT (Neg); UA COLLECTION TYPE CLN CATCH MIDSTREAM
[2025-04-18 08:12] LABS: SQUAMOUS EPITHELIAL CELL,UR MODERATE /LPF (FEW)
--- NOTE | 2025-04-18 08:56 | Physician Documentation ---
History of Present Illness Chief Complaint: Abdominal Pain Stated Complaint: ABDOMINAL PAIN Time Seen by MD: 07:10 Primary Medical Doctor: Filiberto Carney Mode of Arrival: Ambulatory HPI 74 year old female reports LLQ abdominal pain that started yesterday and which feels similar to her prior episode of diverticulitis. She denies fever, blood in her stool, N/V/D, urinary symptoms. Medication Reconciliation Allergies: Coded Allergies: monosodium glutamate (Verified Allergy, Severe, BREATHING DIFFICULTY, 04/18/25) Vjfbeju-EOC-UfQ Reductase Inhibitor (Verified Allergy, Intermediate, 04/18/25) vancomycin (Verified Allergy, Unknown, itching, 04/18/25) famotidine (Unverified Adverse Reaction, Mild, DIARRHEA, 04/18/25) hydrocodone (Verified Adverse Reaction, Mild, INSOMNIA + ITCHING, 04/18/25) hydromorphone (Verified Adverse Reaction, Mild, INSOMNIA + ITCHING, 04/18/25) pantoprazole (Unverified Adverse Reaction, Mild, DIARRHEA, 01/09/19) Uncoded Allergies: MEGES (Allergy, Intermediate, CAUSED STROKE, 01/09/19) Scheduled Alprazolam (Xanax), 1 TAB PO TID PRN, (Reported) Amlodipine Besylate (Amlodipine Besylate), 1 TABLET PO DAILY, (Reported) Aspirin (Aspir 81), 1 TAB PO DAILY, (Reported) Atenolol (Atenolol), 1 TAB PO DAILY, (Reported) Mirtazapine (Remeron), 0.5 TAB PO HS, (Reported) Omeprazole Magnesium (Prilosec Otc), 1 TAB PO DAILY, (Reported) Triamterene/Hydrochlorothiazid (Triamterene-Hctz 37.5-25 Mg Cp), 1 CAP PO DAILY, (Reported) Miscellaneous Medications Calcium Carbonate/Vitamin D3 (Calcium + D 600 Mg Tablet), 1 EACH PO, (Reported) Cyanocobalamin (Vitamin B-12) (Vitamin B-12), 1,000 MCG PO, (Reported) Past Medical History Past Medical History: Hypertension, Arthritis, *CANCER*, Anxiety Past Surgical History: cholecystectomy, hysterectomy, orthopedic surgeries, tonsillectomy Alcohol Use: Occasionally Lives with: Spouse Lives In: Home Occupation: employed Review of Systems All Other Systems at this time: Reviewed and Negative Physical Exam Vital Signs: RN Vital Signs have been reviewed: Yes, Temperature: 97.2, Source: Temporal, Heart Rate: 59, Respiratory Rate: 18, BP: 108/65, Pulse Oximetry: 98, Weight: 62.150 Oxygen Flow Rate: 0 Physical Exam HEENT: PERRL, moist oral mucosa, EOMI Pulmonary: No respiratory distress GI: nondistended, soft, +TTP LLQ, no guarding, no rebound MSK: no deformity Skin: w/d/i, no rash Neuro: alert, nonfocal Psych: normal affect Progress Results/Orders Results/Orders Orders - KUAMR PETERSON MD Ct Abdomen Pelvis (04/18/25 08:11) Completed Orders - KUMAR PETERSON MD Cbc/Diff (04/18/25 07:09) Amylase (04/18/25 07:09) Lipase (04/18/25 07:09) CMP (04/18/25 07:09) Ct Abdomen Pelvis (04/18/25 08:11) Ua W/Microscopic, Cult If Ind (04/18/25 07:50) Vital Signs 04/18/25 04/18/25 04/18/25 07:06 07:42 08:00 Temp 97.2 Pulse 64 59 Resp 18 18 B/P (MAP) 115/66 108/65 (79) Pulse Ox 95 98 O2 Flow Rate 0 Laboratory Tests Test 04/18/25 07:25 04/18/25 07:50 White Blood Count 5.5 Red Blood Count 3.73 L Hemoglobin 12.0 Hematocrit 35.5 Mean Corpuscular Volume 95.2 Mean Corpuscular Hemoglobin 32.1 H Mean Corpuscular Hemoglobin Concent 33.7 Red Cell Distribution Width 15.1 H Platelet Count 201 Mean Platelet Volume 7.5 Neutrophils (%) (Auto) 73.8 Lymphocytes (%) (Auto) 14.9 L Monocytes (%) (Auto) 7.2 Eosinophils (%) (Auto) 3.5 Basophils (%) (Auto) 0.6 Neutrophils # (Auto) 4.1 Lymphocytes # (Auto) 0.8 L Monocytes # (Auto) 0.4 Eosinophils # (Auto) 0.2 Basophils # (Auto) 0.0 CBC Comment Sodium Level 143 Potassium Level 2.9 *L Chloride Level 104 Carbon Dioxide Level 29.9 Anion Gap 9 Blood Urea Nitrogen 26 H Creatinine 1.41 H Estimated GFR/1.73 m2 36 BUN/Creatinine Ratio 18.4 Glucose Level 93 Calcium Level 9.4 Total Bilirubin 0.4 Aspartate Amino Transf (AST/SGOT) 14 Alanine Aminotransferase (ALT/SGPT) 12 Alkaline Phosphatase 88 Total Protein 6.8 Albumin 3.0 L Globulin 3.8 Albumin/Globulin Ratio 0.8 L Amylase Level 70 Lipase 58 Chemistry Comments Urine Specimen Description Cln catch midstream Urine Color Yellow Urine Clarity Clear Urine pH 6.0 Urine Specific [place] 1.010 Urine Protein Negative Urine Glucose (UA) Negative Urine Ketones Negative Urine Occult Blood Trace-intact Urine Nitrite Negative Urine Bilirubin Negative Urine Urobilinogen 0.2 Urine Leukocyte Esterase Negative Urine RBC 0-2 Urine WBC 0-4 Urine Squamous Epithelial Cells Moderate Urine Bacteria Few Urine Culture Indicated Not ind Volume Urine Centrifuged 10 ml Urine Comment Medical Decision Making Findings 74 year old female with likely diverticulitis, confirmed on CT scan. Workup otherwise unremarkable. Ct interpreted by me demonstrated fat stranding and diverticula in the sigmoid colon, no free air, no evidence of obstruction. Will provide antibiotics and return precautions as patient appears well otherwise and stable. Differential Dx:Considerations: Include: Appendicitis, Bowel obstruction, Diverticular disease, Gastroenteritis, Hernia, Ischemic bowel, Urinary tract infection, Urolithiasis Departure Disposition: 01 HOME / SELF CARE / HOMELESS Impression: Primary Impression: Diverticulitis of sigmoid colon Condition: Stable Discharge Instructions: Diverticulitis Referrals: NO PRIMARY CARE PROVIDER (PCP) Prescriptions Ciprofloxacin HCl (Ciprofloxacin HCl) 500 Mg Tab 1 TAB PO BID, #14 TAB Prov: KUMAR PETERSON MD 04/18/25 Education Educated: Patient Educated regarding: diagnosis, treatment, prognosis, need for follow up Signature Scribe Signature: . Attestation: . KUMAR PETERSON MD Apr 18, 2025 08:56
--- NOTE | 2025-04-18 09:00 | RADIOLOGY REPORT ---
Exam: CT CT ABDOMEN PELVIS History: LLQ pain Comparison Study: CT CT ABDOMEN PELVIS on DOS: 01/03/25 Technique: Multidetector spiral CT of the abdomen and pelvis was performed from lung bases to pubic symphysis. Imaging was performed without intravenous contrast. Coronal and sagittal multiplanar reformats were obtained from the axial data set by the technologist. Radiation Dose : 1. Abdomen/Pelvis: CTDIvol 14.2 mGy, DLP 672.7 mGy*cm. Findings: Evaluation of vasculature and solid organs is limited due to lack of intravenous contrast use. Lung Bases: Lung bases are clear. Visualized portions of the heart and pericardium are unremarkable. Liver: The liver is normal in size. No focal lesions. Gallbladder and Biliary Tree: The gallbladder is surgically absent. No intrahepatic or extrahepatic biliary ductal dilatation. Spleen: Unremarkable Pancreas: The pancreas is grossly unremarkable. Adrenal Glands: Unremarkable Kidneys: Kidneys demonstrate no intrarenal calculi or hydronephrosis. There is a right renal cyst measuring 6.6 cm. GI tract: The stomach is grossly normal in appearance. No evidence of small bowel wall thickening or abnormal dilatation to suggest bowel obstruction. There is sigmoid diverticulosis. Mucosal thickening of the sigmoid colon with fat stranding consistent with acute sigmoid diverticulitis. Liquid stool in the colon. Normal appendix. Peritoneum/mesentery/retroperitoneum. No evidence of free intraperitoneal air. No ascites. No evidence of suspicious lymphadenopathy. Abdominal Wall: Unremarkable. Vasculature: The visualized abdominal aorta is normal in size and caliber. Evaluation of abdominal and pelvic vessels is limited due to lack of intravenous contrast. There are atherosclerotic calcifications in the aorta. Urinary Bladder: Grossly unremarkable for degree of distention. Pelvic Organs: Unremarkable Musculoskeletal: No aggressive focal bony lesions, acute fractures or dislocation. There is a right hip prosthesis. Left hip joint space narrowing and osteophytes with subchondral cysts. S shaped scoliosis. IMPRESSION: 1. Sigmoid diverticulosis with mucosal thickening and pericolonic fat stranding consistent with acute sigmoid diverticulitis. No fluid collection and perforation. 2. Cholecystectomy.
[2025-04-18] MEDS ORDERED: CIPR-458 PO (09:52)
[2025-04-18] MEDS: ciprofloxacin 250mg tablet PO ONE (10:13)
[2025-04-18 10:25] VITALS: BP 120/47; PULSE 57; RESP 18; TEMP 97.2; O2SAT 99
== END 2025-04-18 10:18 | disposition home or self-care (01) ==
LOC: ER 07:00
DX: K57.32 Diverticulitis of large intestine without perforation or abscess without bleeding (principal); I10 Essential (primary) hypertension; M19.90 Unspecified osteoarthritis, unspecified site; F41.9 Anxiety disorder, unspecified; Z88.1 Allergy status to other antibiotic agents; Z88.5 Allergy status to narcotic agent; Z88.8 Allergy status to other drugs, medicaments and biological substances; Z90.49 Acquired absence of other specified parts of digestive tract; Z90.710 Acquired absence of both cervix and uterus
CPT/HCPCS: 36415; 74176; 80053; 81001; 82150; 83690; 85025; 99284

== ENCOUNTER 2025-05-10 07:37 | Emergency (ER) | payer MEDICARE ==
[~2025-05-10] VITALS: Ht 154.9 cm; Wt 56.8 kg
[~2025-05-10 07:37] MED LIST changes: +CIPR-458 PO
[2025-05-10 07:41] VITALS: TEMP 98
[2025-05-10 08:54] LABS: MEAN PLATELET VOLUME 7.1 FL (7.4-10.4); RED CELL DISTRIBUTION WIDTH 14.9 % (11.5-14.5)
--- NOTE | 2025-05-10 09:07 | Physician Documentation ---
History of Present Illness Chief Complaint: Abdominal Pain Stated Complaint: ABD PAIN Time Seen by MD: 08:16 OK to notify your PCP?: Yes Primary Medical Doctor: Filiberto Carney Mode of Arrival: POV HPI This is 74-year-old female patient with a history of hypertension arteritis history of uterine cancer and anxiety and recurrent diverticulitis who is also status post cholecystectomy hysterectomy and tonsillectomy drove to the emergency room by herself because she thinks that the diverticulitis that was treated with ciprofloxacin since April [address] scan showed uncomplicated diverticulitis in the sigmoid colon. She told me that she has no nausea vomiting she is eating fine. The reason being is she still have some discomfort in the lower left abdomen and she wants to make sure that the diverticulitis is gone. No other complaints. Medication Reconciliation Allergies: Coded Allergies: monosodium glutamate (Verified Allergy, Severe, BREATHING DIFFICULTY, 04/18/25) Cwzlhmi-VZR-EhH Reductase Inhibitor (Verified Allergy, Intermediate, 04/18/25) vancomycin (Verified Allergy, Unknown, itching, 04/18/25) famotidine (Unverified Adverse Reaction, Mild, DIARRHEA, 04/18/25) hydrocodone (Verified Adverse Reaction, Mild, INSOMNIA + ITCHING, 04/18/25) hydromorphone (Verified Adverse Reaction, Mild, INSOMNIA + ITCHING, 04/18/25) pantoprazole (Unverified Adverse Reaction, Mild, DIARRHEA, 01/09/19) Uncoded Allergies: MEGES (Allergy, Intermediate, CAUSED STROKE, 01/09/19) Scheduled Alprazolam (Xanax), 1 TAB PO TID PRN, (Reported) Amlodipine Besylate (Amlodipine Besylate), 1 TABLET PO DAILY, (Reported) Aspirin (Aspir 81), 1 TAB PO DAILY, (Reported) Atenolol (Atenolol), 1 TAB PO DAILY, (Reported) Ciprofloxacin HCl (Ciprofloxacin HCl), 1 TAB PO BID Metronidazole* (Flagyl*), 1 TAB PO Q6H Mirtazapine (Remeron), 0.5 TAB PO HS, (Reported) Omeprazole Magnesium (Prilosec Otc), 1 TAB PO DAILY, (Reported) Sulfamethoxazole/Trimethoprim (Bactrim Ds Tablet), 1 TAB PO Q12H Triamterene/Hydrochlorothiazid (Triamterene-Hctz 37.5-25 Mg Cp), 1 CAP PO DAILY, (Reported) Miscellaneous Medications Calcium Carbonate/Vitamin D3 (Calcium + D 600 Mg Tablet), 1 EACH PO, (Reported) Cyanocobalamin (Vitamin B-12) (Vitamin B-12), 1,000 MCG PO, (Reported) Past Medical History Past Medical History: Hypertension, Arthritis, *CANCER*, Anxiety Past Surgical History: cholecystectomy, hysterectomy, orthopedic surgeries, tonsillectomy Alcohol Use: Occasionally Lives with: Spouse Lives In: Home Occupation: employed Review of Systems ROS As well as other positive symptoms noted in the HPI. Otherwise all other systems are reviewed and negative. Physical Exam Vital Signs: Temperature: 98.0, Source: Oral, Heart Rate: 69, Respiratory Rate: 18, BP: 167/148, Pulse Oximetry: 97, Weight: 56.820 Oxygen Flow Rate: 0 Progress Results/Orders Results/Orders Orders - BENJA NUNEZ MD BMP (05/10/25 08:28) Urinalysis, Cult If Indicated (05/10/25 08:28) Procalcitonin (05/10/25 08:28) C-Reactive Protein (05/10/25 08:28) ESR (05/10/25 08:28) Completed Orders - BENJA NUNEZ MD Cbc/Diff (05/10/25 08:28) Vital Signs 05/10/25 05/10/25 05/10/25 07:41 08:05 08:06 Temp 98.0 Pulse 68 69 Resp 16 18 18 B/P (MAP) 124/63 167/148 (154) Pulse Ox 98 97 O2 Flow Rate 0 Laboratory Tests Test 05/10/25 08:47 White Blood Count 4.2 L Red Blood Count 3.49 L Hemoglobin 11.3 L Hematocrit 33.1 L Mean Corpuscular Volume 95.0 Mean Corpuscular Hemoglobin 32.3 H Mean Corpuscular Hemoglobin Concent 34.0 Red Cell Distribution Width 14.9 H Platelet Count 201 Mean Platelet Volume 7.1 L Neutrophils (%) (Auto) 66.3 Lymphocytes (%) (Auto) 21.0 Monocytes (%) (Auto) 7.5 Eosinophils (%) (Auto) 4.2 Basophils (%) (Auto) 1.0 Neutrophils # (Auto) 2.8 Lymphocytes # (Auto) 0.9 L Monocytes # (Auto) 0.3 Eosinophils # (Auto) 0.2 Basophils # (Auto) 0.0 CBC Comment Chemistry Comments Medical Decision Making Findings ER Course/Med. Decision Making REVIEW of RECORD(S): Previous medical records here and/or external medical records, such as that provided directly by the patient, by EMS and/or outside medical facilities, if available, were reviewed. COMORBIDITIES MDM During the physical examination, the findings suggestive of acute life-threatening condition such as JVD, tracheal deviation, acidotic breathing, noisy stridorous breath sounds, pulses paradoxus, muffled heart sounds, unequal breath sounds, abdominal rigidity and rebound tenderness, focal neurological deficits, cool clammy skin, severe hypotension, severe tachycardia or bradycardia are absent. Patient presenting for . Vital signs reviewed. Patient is hemodynamically stable and does not meet SIRS criteria. Patient appears nontoxic on exam. Physical examination is unremarkable and abdominal examination does not reveal any acute abdomen features. CBC showed improvement in WBC. Procalcitonin is less than 0.05. UA is clear. I think the patient is improving and I will discharge the patient now. TREATMENT/DISPOSITION: The patient's presentation is most consistent with resolving diverticulitis. Prior to discharge I independently reviewed the patients past medical history, clinical risk factors, comorbidities, and social determinants of health and diagnostic studies. The patient appears to be a safe discharge home with close outpatient PCP follow-up I had extensive discussion with patient regarding management, disposition and follow up. Potential symptom etiology was discussed, and shared decision making occurred. They will return immediately if symptoms worsen, do not improve, or they have any further concerns. Prior to discharge all questions were addressed. The patient is aware that the purpose of this visit was to screen for an acute medical emergency requiring emergent stabilization. Chronic and occult conditions, including malignancies, have not been ruled out. If patient is unable to arrange follow-up as stated in the discharge instructions and further discussed with the patient directly, or their symptoms worsen/become more concerning, they are to return to the ER for reassessment immediately. Prior to leaving the department, the patient has a pl an for discharge, has decision making capacity, and acknowledges an understanding of the verbal and written discharge instructions. SOCIAL DETERMINANTS: Patient demonstrates no obvious challenges to following up as an outpatient although did consider whether patient had any barriers to access care including homelessness, Food insecurity, Mental health, Substance abuse, Disabilities, Limited access to medical care, Difficulty finding transport, Insurance issues, Refusal of care or testing due to cost concerns. MEDICAL SCREENING: I have discussed with the patient the non-definitive nature of the emergency screening exam, diagnosis and the possibility of a variety of conditions which may present in atypically benign fashion and stressed the importance of close follow-up for definitive diagnosis and treatment. We discussed signs and symptoms that should be watched for which might indicate a more serious or new condition that would benefit from emergency reevaluation and the patient has verbalized understanding to this and my other detailed discharge instructions and promises compliance. I have referred him back to his primary physician of course for a more detailed evaluation and more definitive diagnoses. DISCLAIMER: Inadvertent spelling and grammatical errors are likely due to EMR/dictation software use and do not reflect on the overall quality of patient care. Note that the electronic time recorded on this note does not necessarily reflect the actual time of the patient encounter. Departure Impression: Primary Impression: Diverticular disease Condition: Stable Discharge Instructions: Abdominal Pain (Nonspecific) Additional Instructions: Thank you for coming to our Emergency Department today. Please take the medicine as instructed and ampule pain is getting worse return to the ER . Please ask your nurse or provider if you have questions about your care today and do not leave until all your questions have been answered. Please use any medications given as directed and follow-up with your doctor (or the doctor you were referred to) in the next 1-3 days. Your primary care doctor can help to coordinate outpatient specialty care and provide authorization for specialty referral as needed. If you do not have a primary care doctor you may follow up at a [facility]. You may also use motrin and tylenol as needed for fever and/or pain unless instructed otherwise by your provider or nurse. Indications for more urgent follow-up have been discussed, but you may return to the Emergency Department at ANY time for any worrisome or worsening symptoms. County Facilities: [facility] Facilities: [facility] Address:[address] [place], [place] [id number] [facility]: [place] Address:[address] [place] [id number] [facility]: [facility] Address:[address] [place] [address] [facility] Address:[address] [place] [id number] Registration Billing Pharmacy Referrals [facility] Address:[address] [place] [address] Referrals: NO PRIMARY CARE PROVIDER (PCP) Prescriptions Metronidazole* (Flagyl*) 500 Mg Tablet 1 TAB PO Q6H for 5 Days, #20 TAB Prov: BENJA NUNEZ MD 05/10/25 Sulfamethoxazole/Trimethoprim (Bactrim Ds Tablet) 800 Mg-160 Mg Tablet 1 TAB PO Q12H for 7 Days, #14 TAB Prov: BENJA NUNEZ MD 05/10/25 Education Educated: Patient Educated regarding: diagnosis, treatment, need for follow up Signature Scribe Signature: x Attestation: BENJA Boss MD May 10, 2025 09:07
[2025-05-10 09:09] LABS: CREATININE 1.31 MG/DL (0.40-0.90); TOTAL CARBON DIOXIDE 30.1 MMOL/L (24-32); eCRCL 28 ML/MIN; eGFR 40 ML/MIN
[2025-05-10 09:41] LABS: LEUKOCYTE ESTERASE ,URINE NEGATIVE (Neg); NITRITES, URINE NEGATIVE (Neg); OCCULT BLOOD,URINE NEGATIVE (Neg)
[2025-05-10 09:44] LABS: UA COLLECTION TYPE CLN CATCH MIDSTREAM
[2025-05-10 10:09] LABS: SQUAMOUS EPITHELIAL CELL,UR MODERATE /LPF (FEW)
[2025-05-10] MEDS ORDERED: METR-159 PO (10:35)
[2025-05-10] MEDS ORDERED: SULF1TAB49 PO (10:35)
[2025-05-10 10:50] VITALS: BP 115/57; PULSE 54; RESP 14; O2SAT 98
== END 2025-05-10 10:39 | disposition home or self-care (01) ==
LOC: ER 07:38
DX: K57.32 Diverticulitis of large intestine without perforation or abscess without bleeding (principal); F41.9 Anxiety disorder, unspecified; I10 Essential (primary) hypertension; M19.90 Unspecified osteoarthritis, unspecified site; Z85.42 Personal history of malignant neoplasm of other parts of uterus; Z88.5 Allergy status to narcotic agent; Z88.8 Allergy status to other drugs, medicaments and biological substances; Z90.49 Acquired absence of other specified parts of digestive tract; Z90.710 Acquired absence of both cervix and uterus; Z88.1 Allergy status to other antibiotic agents; Z88.6 Allergy status to analgesic agent; Z79.899 Other long term (current) drug therapy; Z79.82 Long term (current) use of aspirin; Z72.89 Other problems related to lifestyle
CPT/HCPCS: 36415; 80048; 81001; 84145; 85025; 85651; 86140; 99283

== ENCOUNTER 2025-07-19 10:00 | Day surgery (SDC) | payer MEDICARE ==
[~2025-07-19] VITALS: Ht 152.4 cm; Wt 55.3 kg
[2025-07-19 09:44] LABS: ISTAT ANION GAP 11.0 (8-12); ISTAT BUN 18.0 mg/dL (7-18); ISTAT CL 92.0 mmol/L (99-107); ISTAT CREATININE 1.1 mg/dL (0.6-1.1); ISTAT GLUCOSE 82.0 mg/dL (70-104); ISTAT HGB 12.6 g/dl (12.0-16.0); ISTAT Hct 37.0 %PCV (35-45); ISTAT IONIZED CALCIUM 1.21 mmol/L (1.03-1.32); ISTAT K 3.1 mmol/L (3.5-5.1); ISTAT NA 134.0 mmol/L (135-145); ISTAT TOTAL CO2 31.0 mmol/L (24-32); ISTAT eGFR 48.0 ML/MIN; POC BUN/CREATININE RATIO 16.4 (6.6-38.0)
[2025-07-19 10:00] VITALS: BP 112/60; PULSE 56; RESP 16; TEMP 98.1; O2SAT 100
[~2025-07-19 10:00] MED LIST changes: -ALPR1TAB2 PO; +ALPR1TAB7 PO; -ASPI-611 PO; +ATEN-27 PO; -ATEN100T PO; -CALC-1215 PO; -CIPR-458 PO; -CYAN100087 PO; +DOCUMENT DATE & TIME OF BETA-BLOCKER PO ONE; +LETR2.5T23 PO; +MIRT45TA79 PO; -MIRT45TA83 PO; +POTA10CA95 PO; +PRAV40TA17 PO; +RIVA15TA PO; +ringers solution, lacted 1,000 ML IV SCH
--- NOTE | 2025-07-19 10:39 | ELECTROCARDIOGRAPH REPORT ---
[facility] Test Date: 2025-07-19 Test Time: 09:27:17 Pat Name: KILO CAREY Department: PSYCHIATRIC-PRE-OP Room: Gender: F Information Systems Audit Manager: CINDY : 1950 Requested By: MARIAMA MIDDLETON Order Number: [id number] Reading MD: Dr. Dee Richards Measurements Intervals [place] Rate: 53 P: 32 MN: 172 QRS: -4 QRSD: 101 T: -27 QT: 449 QTc: 422 Interpretive Statements Sinus rhythm Borderline T abnormalities, inferior leads Electronically Signed On 07-19-2025 16:26:[address] Dee Richards Please click the below link to view image of tracing.
[2025-07-19 14:06] VITALS: BP 116/66; PULSE 63; RESP 14; O2SAT 100
[2025-07-19 14:10] VITALS: BP 106/43; PULSE 69; RESP 23; O2SAT 100
[2025-07-19 14:20] VITALS: BP 105/61; PULSE 81; RESP 21; O2SAT 98
[2025-07-19 14:30] VITALS: BP 110/62; PULSE 82; RESP 19; O2SAT 99
[2025-07-19] MEDS ORDERED: propofol inj 40 ML IV ONE (14:34)
[2025-07-19] MEDS ORDERED: ePHEDrine 50MG/ML INJ. ONE (14:34)
== END 2025-07-19 15:06 | disposition home or self-care (01) ==
LOC: GI LAB 10:00
PROVIDERS: ATTEND Internal Medicine Gastroenterology
DX: Z12.11 Encounter for screening for malignant neoplasm of colon (principal); D12.0 Benign neoplasm of cecum; K57.30 Diverticulosis of large intestine without perforation or abscess without bleeding; I12.9 Hypertensive chronic kidney disease with stage 1 through stage 4 chronic kidney disease, or unspecified chronic kidney disease; N18.30 Chronic kidney disease, stage 3 unspecified; Z90.710 Acquired absence of both cervix and uterus; Z96.641 Presence of right artificial hip joint; Z85.42 Personal history of malignant neoplasm of other parts of uterus; Z90.49 Acquired absence of other specified parts of digestive tract; Z82.49 Family history of ischemic heart disease and other diseases of the circulatory system; Z82.0 Family history of epilepsy and other diseases of the nervous system; Z81.8 Family history of other mental and behavioral disorders
CPT/HCPCS: 45385; 80047; 88305; 93005; A4615; J2704; J3490; J7120; Z7512; Z7610